=== PATIENT | male | born 1980 | race Caucasian/White ===

== ENCOUNTER → 2020-05-03 | Emergency (ER) | payer SELFPAY | LOC: BURERS 04:55 | DX: L05.01 Pilonidal cyst with abscess (principal); F41.9 Anxiety disorder, unspecified; F31.9 Bipolar disorder, unspecified | CPT/HCPCS: 99282 ==

== ENCOUNTER 2021-08-31 18:38 | Emergency (ER) | payer SELFPAY ==
[2021-08-31] MEDS ORDERED: Cephalexin 250 MG CAP ONE (19:23)
== END 2021-08-31 19:25 | disposition home or self-care (01) ==
LOC: BURERS 18:38
DX: M79.644 Pain in right finger(s) (principal); M79.89 Other specified soft tissue disorders

== ENCOUNTER 2022-03-23 01:54 | Emergency (ER) | payer SELFPAY ==
[2022-03-23 02:32] LABS: #Eosinphils 0.1 thou/uL (0.0-0.7); #Monocytes 0.6 thou/uL (0.11-0.59); %Basophils 0.7 % (0.0-1.0); %Eosinophils 1.5 % (0.0-10.0); %Lymphocytes 17.9 % (21.0-51.0); %Monocytes 10.8 % (0.0-10.0); Hemoglobin 11.6 g/dL (14.0-18.0); Mean Corpuscular HGB CONC 34.3 g/dL (32.0-36.0); Mean Corpuscular Hemoglobin 32.2 pg (27.0-31.0); Mean Corpuscular Volume 93.9 fL (78.0-98.0); Mean Platelet Volume 5.2 fL (7.4-10.4); Platelet Count 443 thou/uL (130-400); RBC Distribution Width 12.4 % (11.5-14.5); White Blood Cell (WBC) Count 5.8 thou/uL (4.8-10.8)
[2022-03-23 02:55] LABS: ALT (SGPT) 10 U/L (8-55); AST (SGOT) 13 U/L (5-34); Acetaminophen Less than 10.0 mcg/mL (10.0-30.0); Albumin 3.6 g/dL (3.5-5.0); Alcohol Less than 10 mg/dL (Less than 10); Alkaline Phosphatase 95 U/L (40-110); Anion Gap 13 mmol/L (10-20); BUN (Urea Nitrogen) 8 mg/dL (8.9-20.6); Bilirubin, Total 0.3 mg/dL (0.2-1.2); Calc. Creatinine Clearance 0 mL/min (70-130); Calcium 8.6 mg/dL (7.8-10.44); Carbon Dioxide 28 mmol/L (22-29); Chloride 102 mmol/L (98-107); Estimated GFR 113; Globulin 3.1 g/dL (2.4-3.5); Glucose 105 mg/dL (70-105); Potassium 3.7 mmol/L (3.5-5.1); Protein, Total 6.7 g/dL (6.0-8.3); Salicylate Less than 8.0 mg/dL (15.0-30.0); Sodium 139 mmol/L (136-145)
[2022-03-23 03:44] LABS: Bilirubin Small (Negative); Blood, Urine Negative (Negative); Clarity Clear (Clear); Glucose, Urine (Dipstick) Negative (Negative); Ketone, Urine Trace mg/dL (Negative); Leukocyte Negative (Negative); Nitrite Negative (Negative); Protein, Urine (Dipstick) 30 mg/dL (Neg-Trace); Specific Gravity, Urine 1.025 (1.005-1.030)
[2022-03-23 03:52] LABS: Bacteria/HPF Rare-Few HPF (None Seen); Mucous/LPF 2+ LPF (<2+); RBC/HPF 0-3 HPF (0-3); Squamous Epithelial 0-3 HPF (0-3); WBC/HPF 0-3 HPF (0-3)
== END 2022-03-23 04:03 | disposition home or self-care (01) ==
LOC: BURERS 01:54
DX: R60.0 Localized edema (principal); F17.210 Nicotine dependence, cigarettes, uncomplicated
CPT/HCPCS: 80053; 80307; 81003; 81015; 85025; 99284

== ENCOUNTER 2024-05-12 13:02 | Emergency (ER) | payer BC, SELFPAY ==
[2024-05-12] MEDS ORDERED: Ketorolac Tromethamine 30 MG (1 mL) VIAL ONE (13:27)
[2024-05-12] MEDS ORDERED: HYDROcodone/Acetaminophen 5/325 mg Tablet ONE (13:27)
== END 2024-05-12 13:35 | disposition home or self-care (01) ==
LOC: BURERS 13:02
DX: G89.29 Other chronic pain (principal); M25.511 Pain in right shoulder; F17.210 Nicotine dependence, cigarettes, uncomplicated
CPT/HCPCS: 96372; 99283; J1885